=== PATIENT | male | born 1965 | race Hispanic/Latino ===

== ENCOUNTER 2016-12-08 13:59 | Outpatient (CLI) | payer MEDICARE, OTHER ==
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
== END 2016-12-08 14:00 | disposition home or self-care (01) ==
LOC: WCC 13:59
PROVIDERS: ATTEND Family Medicine
DX: S31.000D Unspecified open wound of lower back and pelvis without penetration into retroperitoneum, subsequent encounter (principal); G82.20 Paraplegia, unspecified; N31.9 Neuromuscular dysfunction of bladder, unspecified
CPT/HCPCS: 11042; 97139; G0463; 99203

== ENCOUNTER 2017-02-02 08:52 | Outpatient (CLI) | payer MEDICARE, OTHER ==
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
[2017-02-02] MEDS ORDERED: Sodium Chloride 0.9% 15 ML NEB ONE (21:23)
== END 2017-02-02 08:53 | disposition home or self-care (01) ==
LOC: WCC 08:52
PROVIDERS: ATTEND Family Medicine
DX: L98.429 Non-pressure chronic ulcer of back with unspecified severity (principal); G82.20 Paraplegia, unspecified; N31.9 Neuromuscular dysfunction of bladder, unspecified
CPT/HCPCS: A4218

== ENCOUNTER 2017-03-02 10:32 | Outpatient (CLI) | payer MEDICARE, OTHER ==
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
[2017-03-02] MEDS ORDERED: Sodium Chloride 0.9% 15 ML NEB ONE (17:10)
== END 2017-03-02 10:33 | disposition home or self-care (01) ==
LOC: WCC 10:32
PROVIDERS: ATTEND Family Medicine
DX: S71.001D Unspecified open wound, right hip, subsequent encounter (principal); G82.20 Paraplegia, unspecified; N31.9 Neuromuscular dysfunction of bladder, unspecified
CPT/HCPCS: 11042; A4218

== ENCOUNTER 2017-04-06 11:09 | Outpatient (CLI) | payer MEDICARE, OTHER ==
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
== END 2017-04-06 11:10 | disposition home or self-care (01) ==
LOC: WCC 11:09
PROVIDERS: ATTEND Family Medicine
DX: T81.89XD Other complications of procedures, not elsewhere classified, subsequent encounter (principal); G82.20 Paraplegia, unspecified; N31.9 Neuromuscular dysfunction of bladder, unspecified

== ENCOUNTER 2017-04-27 11:28 | Outpatient (CLI) | payer MEDICARE, OTHER ==
--- NOTE | 2017-04-27 14:47 | MRI ---
MRI PELVIS WITH AND WITHOUT CONTRAST: Date: 04/27/17 HISTORY: Pressure ulcer. COMPARISON: MRI pelvis from 09/07/16. FINDINGS: Bones: Continued interval healing of the chronic osteomyelitis of the right ischium with continuation of the superior and inferior pubic rami. Sinus tract extending to the skin is again seen. Overall, the find ings represent an improvement from the comparison examination. No new other areas of osteomyelitis. No stress injury. Soft Tissues: There is calcification projected over the location of the subtrochanteric bursa bilaterally near the gluteus fascia projecting over the greater trochanter. Intrapelvic Soft Tissues: Mild thickening of the wall of the rectum. No significant free fluid/ Muscles: There is edema within the right obturator internus muscle, as well as the obturator externus, and delma e involvement of the adductor musculature. No large drainable fluid collection. No evidence for abscess. IMPRESSION: 1. Overall improvement from the comparison examination. Findings suggesting continued healing of ost eomyelitis of the right ischium. Sinus tract is still there, although there is less T1 signal loss an d decreased edema. There is also decreased infectious myositis of the obturator musculature on the ri ght. 2. Bilateral areas of susceptibility along the expected location of the subcutaneous trochanteric bu rsa, likely trochanteric bursal calcifications as seen on radiograph of 09/06/16. POS: OFF
[2017-04-27] MEDS ORDERED: Gadobenate Dimeglumine 529 MG/1 ML (20ML VIAL) ONE (16:37)
== END 2017-04-27 11:29 | disposition home or self-care (01) ==
LOC: MRI 11:28
PROVIDERS: ATTEND Family Medicine
DX: L89.159 Pressure ulcer of sacral region, unspecified stage (principal)
CPT/HCPCS: 72197; A9579

== ENCOUNTER 2017-07-19 08:13 | Inpatient (IN) | payer MEDICARE ==
[2017-07-19] MEDS ORDERED: Fentanyl 100 MCG/2 ML VIAL ONE ×3 (10:47→13:35)
[2017-07-19] MEDS ORDERED: Bacitracin Zinc Ointment 30 gm TUBE ONE (10:51)
[2017-07-19] MEDS ORDERED: Neomycin-Polymyxin 1 ML AMP ONE (10:51)
[2017-07-19] MEDS ORDERED: Famotidine/PF 20 mg/2ml Vial ONE (10:56)
[2017-07-19] MEDS ORDERED: Promethazine HCl 25 MG/ML VIAL SLOW IVP PRN (13:11)
[2017-07-19] MEDS ORDERED: Ondansetron HCl/PF 4 MG/2 ML Vial IVP PRN (13:11)
[2017-07-19] MEDS ORDERED: Promethazine HCl 25 MG/ML VIAL IM PRN (13:11)
[2017-07-19] MEDS ORDERED: Meperidine HCl/PF 25 MG/ML VIAL SLOW IVP PRN (13:11)
[2017-07-19] MEDS ORDERED: hydrALAZINE 20 MG/ML VIAL ONE (13:35)
[2017-07-19] MEDS ORDERED: hydrALAZINE 20 MG/ML VIAL SLOW IVP PRN (14:26)
[2017-07-19] MEDS ORDERED: Lidocaine 1% PF 5 ML VIAL ONE (15:41)
[2017-07-19] MEDS ORDERED: PHENYLEPHRINE-NS 100 MCG/ML 10 ML SYRINGE ONE (15:41)
[2017-07-19] MEDS ORDERED: Ketorolac Tromethamine 30 MG/ML VIAL ONE (15:41)
[2017-07-19] MEDS ORDERED: PROPOFOL 200 MG/20 ML VIAL ONE (15:41)
[2017-07-19] MEDS ORDERED: Ondansetron HCl/PF 4 MG/2 ML Vial ONE (15:41)
[2017-07-19] MEDS ORDERED: Glycopyrrolate 0.2 MG/ML 5 ML SYRINGE ONE (15:41)
[2017-07-19] MEDS ORDERED: ePHEDrine/0.9% NaCl/PF SYRINGE 50 mg/10 ml ONE (15:41)
[2017-07-19] MEDS: CEFAZOLIN 1 GM in Sodium Chloride 0.9% 100 ML IVPB SCH ×2 (18:14→21:44)
[2017-07-19 20:26] VITALS: BMI 19.9
[2017-07-20] MEDS: CEFAZOLIN 1 GM in Sodium Chloride 0.9% 100 ML IVPB SCH ×3 (06:26→21:03)
[2017-07-20] MEDS: HYDROcodone/Acetaminophen 7.5/325 mg Tablet PO PRN ×2 (12:38→21:05)
[2017-07-21] MEDS: CEFAZOLIN 1 GM in Sodium Chloride 0.9% 100 ML IVPB SCH ×3 (05:40→21:50)
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
[2017-07-21 14:26] LABS: #Lymphocytes 1.3 thou/uL (1.20-3.40); #Monocytes 0.8 thou/uL (0.11-0.59); #Neutrophils 8.7 thou/uL (1.40-6.50); %Eosinophils 0.3 % (0.0-10.0); %Lymphocytes 11.8 % (21.0-51.0); %Monocytes 7.5 % (0.0-10.0); %Neutrophils 80.3 % (42.0-75.0); Hemoglobin 13.7 g/dL (14.0-18.0); Mean Corpuscular HGB CONC 33.8 g/dL (32.0-36.0); Mean Corpuscular Hemoglobin 29.2 pg (27.0-31.0); Mean Corpuscular Volume 86.2 fl (80.0-94.0); Mean Platelet Volume 8.7 fL (7.4-10.4); Platelet Count 165 thou/uL (130-400); RBC Distribution Width 12.4 % (11.5-14.5); Red Blood Cell (RBC) Count 4.71 mill/uL (4.70-6.10); White Blood Cell (WBC) Count 10.9 thou/uL (4.8-10.8)
[2017-07-21] MEDS: HYDROcodone/Acetaminophen 7.5/325 mg Tablet PO PRN ×2 (14:33→22:51)
[2017-07-21 14:59] LABS: ALT (SGPT) 7 U/L (8-55); AST (SGOT) 11 U/L (5-34); Albumin 3.3 g/dL (3.5-5.0); Alkaline Phosphatase 77 U/L (40-150); Anion Gap 12 mmol/L (10-20); BUN (Urea Nitrogen) 7 mg/dL (8.9-20.6); Bilirubin, Total 0.5 mg/dL (0.2-1.2); CRP (Inflammatory) 17.82 mg/dL (= or < 0.5); Calc. Creatinine Clearance 121 mL/min (70-130); Calcium 8.6 mg/dL (7.8-10.44); Carbon Dioxide 28 mmol/L (22-29); Chloride 102 mmol/L (98-107); Estimated GFR-MDRD Greater than 90; Globulin 2.9 g/dL (2.4-3.5); Glucose 91 mg/dL (70-105); Potassium 3.7 mmol/L (3.5-5.1); Protein, Total 6.2 g/dL (6.0-8.3); Sodium 138 mmol/L (136-145)
[2017-07-21] MEDS: Ciprofloxacin 500 MG TAB PO SCH (20:14)
--- NOTE | 2017-07-21 21:42 | PRG ---
DATE OF SERVICE: 07/21/2017 SUBJECTIVE: Feeling well. No respiratory symptoms. Mild pain at the surgical site. No abdominal p ain. No diarrhea. PHYSICAL EXAMINATION: VITAL SIGNS: T-max 99.7, BP 110/66. GENERAL: Awake, alert, oriented. LUNGS: Clear. HEART: S1, S2 regular rate. ABDOMEN: Soft, not distended. Surgical site is covered. LABORATORY DATA: White cell count 10.9, hemoglobin 13, platelets 165, 80% neutrophils. Sodium 138, creatinine 0.62. CRP 17, ALT 7. Microbiology with Serratia marcescens and the second gram-negative adrianna. Serratia is sensitive to all antimicrobials except for cefoxitin. ASSESSMENT AND DISCUSSION: Ischial decubitus ulcer associated with paraplegia with osteomyelitis of the ischium. Treated previously with protracted IV antimicrobial therapy and clear-cut improvement i n both clinical and radiological findings. The patient now is status post flap procedure with findin gs of healthy-appearing bone at the bottom. Organisms have been retrieved from the sites, from the d eep culture. Plan is to continue treating with antimicrobials at least for 4 weeks just in case ther e is a residual infection there. We will switch him to oral ciprofloxacin 500 mg twice daily to be c ontinued for 4 weeks.
[2017-07-22] MEDS: Ciprofloxacin 500 MG TAB PO SCH (06:30)
[2017-07-22] MEDS: CEFAZOLIN 1 GM in Sodium Chloride 0.9% 100 ML IVPB SCH ×2 (06:30→14:50)
[2017-07-22 16:03] VITALS: BP 108/68; TEMP 98.1
--- NOTE | 2017-07-23 02:26 | OP ---
DATE OF OPERATION: 07/19/2017 PREOPERATIVE DIAGNOSIS: Right ischial pressure ulcer, stage IV. POSTOPERATIVE DIAGNOSIS: Right ischial pressure ulcer, stage IV. PROCEDURE: Excision of stage IV right ischial pressure ulcer with pulsatile irrigation and a right m usculocutaneous flap reconstruction with MURALI drain x1. SURGEON: Adelfo Harris M.D. ANESTHESIA: General. ESTIMATED BLOOD LOSS: 50 mL. COMPLICATIONS: None. INTRAOPERATIVE FINDINGS: A 2 cm x 1 cm loose bone fragment, ischial bone appears solid. SUMMARY OF THE PROCEDURE: The patient in the preoperative area, operative plan was reviewed with the patient. The patient had the opportunity to have all questions regarding the procedure were answere d. The patient has a chronic wound and has not healed with long-term appropriate wound management. The plan is for excision of the wound, intraoperative cultures, and flap reconstruction. The patient understands the risks of surgery and the perioperative need to avoid a sitting position for 4 plus w eeks. The patient was then taken to the operating room, formal timeout with verification, sterile pr ep and drape, administration of general anesthesia and placement in the prone position, the procedure was commenced. Cultures were obtained. Methylene blue and peroxide mixture was injected into the w ound to allow staining of all undermining areas of the original wound. Sharp excision on skin and el ectrocautery excision to completely excise the wound cavity down to the bone, a free fragment of bone was identified at the base and is removed. The ischial bone appears to be solid and curette was use d on the surface. The wound was copiously irrigated with pulsatile irrigation and a hamstring type a dvancement flap was elevated musculocutaneous, in a pattern of the V-Y advancement with incomplete cu t of the V flap in the future could be readvanced if needed. The wound was again copiously irrigated . The flap was inside, with buried 2-0 Vicryl with 3-0 Vicryl over a 7 mm MURALI drain and on the surfac e of the skin 3-0 Vicryl in a running vertical mattress 0 PDS. Dermabond was used to secure the woun d. The patient tolerated the procedure without complication.
== END 2017-07-22 19:30 | disposition swing bed (61) | DRG 981 ==
LOC: SDC 08:13 → SURG A 14:24
PROVIDERS: ADMIT Surgery Plastic and Reconstructive Surgery; ATTEND Surgery Plastic and Reconstructive Surgery
PROC: 0KXQ0ZZ Transfer Right Upper Leg Muscle, Open Approach (ICD-10-PCS; principal; 2017-07-19)
PROC: 0QB20ZZ Excision of Right Pelvic Bone, Open Approach (ICD-10-PCS; 2017-07-19)
DX: L89.314 Pressure ulcer of right buttock, stage 4 (principal); G82.20 Paraplegia, unspecified; N31.9 Neuromuscular dysfunction of bladder, unspecified; B96.89 Other specified bacterial agents as the cause of diseases classified elsewhere
CPT/HCPCS: 36415; 80053; 85025; 86140; 87070; 87077; 87186; 87205; A4216; G8981-GP-CI; G8982-GP-CI; G8983-GP-CI; J0131; J0360; J0690; J1885; J2001; J2405; J2704; J3010; J7050; Q9968; S0028